=== PATIENT | female | born 1960 ===

== ENCOUNTER 2016-07-02 17:04 | Emergency (ER) | payer MEDICAID ==
[2016-07-02 17:14] VITALS: BP 147/95; PULSE 80; RESP 16; TEMP 98; O2SAT 100
--- NOTE | 2016-07-02 18:03 | ED PDOC ---
Upper Extremity Pain/Injury Time Seen by Provider: 07/02/16 17:43 Chief Complaint (Nursing): Upper Extremity Problem/Injury Chief Complaint (Provider): Upper Extremity Problem/Injury History Per: Patient History/Exam Limitations: no limitations Onset/Duration Of Symptoms: Days Current Symptoms Are (Timing): Still Present Additional Complaint(s): 55 y/o female presents to the emergency department with a complaint of a right shoulder pain after playing with her grandchild since 06/26/2016. Associated with numbness and "twitching" of the muscle. Patient states she had been applying heat pads with minimal relief of pain as long as she stays still; when she moves pain returns. Denies chest pain. Past Medical History Reviewed: Historical Data, Nursing Documentation, Vital Signs Vital Signs: Last Vital Signs Temp 98.0 F 07/02/16 17:12 Pulse 80 07/02/16 17:12 Resp 16 07/02/16 17:12 BP 147/95 H 07/02/16 17:12 Pulse Ox 100 07/02/16 17:12 - Medical History PMH: Bipolar Disorder, GERD, HTN, Hypercholesterolemia - Family History Family History: States: Unknown Family Hx - Social History Current smoker - smoking cessation education provided: No Alcohol: None Drugs: Denies - Home Medications Home Medications: Ambulatory Orders Medication Instructions Recorded Cyclobenzaprine [Cyclobenzaprine 10 mg PO BID #14 tab 07/02/16 HCl] Lisinopril/Hydrochlorothiazide 1 tab PO DAILY 07/02/16 [Lisinopril-Hctz 20-25 mg Tab] Simvastatin [Zocor] 1 tab PO DAILY 07/02/16 - Allergies Allergies/Adverse Reactions: Allergies Allergy/AdvReac Type Severity Reaction Status Date / Time No Known Allergies Allergy Verified 07/02/16 17:12 Review of Systems ROS Statement: Except As Marked, All Systems Reviewed And Found Negative Cardiovascular: Negative for: Chest Pain Musculoskeletal: Positive for: Shoulder Pain (Right), Other ("Twitching" of the muscle) Neurological: Positive for: Numbness Physical Exam - Reviewed Nursing Documentation Reviewed: Yes Vital Signs Reviewed: Yes - Physical Exam Appears: Positive for: Non-toxic, No Acute Distress Head Exam: Positive for: ATRAUMATIC, NORMOCEPHALIC Skin: Positive for: Normal Color, Warm, Dry Back: Negative for: Other (No midline tenderness) Extremity: Positive for: Normal ROM (Full), Other ( Normal pronation and supination. Neurovascularly intact ). Negative for: Tenderness (No AC joint tenderness. No Clavicle tenderness.) Neurologic/Psych: Positive for: Alert, Oriented - ECG O2 Sat by Pulse Oximetry: 100 (RA) Pulse Ox Interpretation: Normal Medical Decision Making Medical Decision Making: Time: 17:43 Initial impression: Shoulder injury Time: 18:12 Upon provider reevaluation patient is feeling better, is medically stable, and requires no further treatment in the ED at this time. Patient will be discharged home with Rx for Cyclobenzaprine HCl 10 mg. Counseling was provided and all questions were answered regarding diagnosis and need for follow up with referred clinics. There is agreement to discharge plan. Return if symptoms persist or worsen. Clinical Impression: Shoulder injury Scribe Attestation: Documented by Carmen Beltran, acting as a scribe for Destini Gay PA-C. Provider Scribe Attestation: All medical record entries made by the Scribe were at my direction and personally dictated by me. I have reviewed the chart and agree that the record accurately reflects my personal performance of the history, physical exam, medical decision making, and the department course for this patient. I have also personally directed, reviewed, and agree with the discharge instructions and disposition. Disposition - Clinical Impression Clinical Impression: Shoulder injury Counseled Patient/Family Regarding: Studies Performed, Rx Given - Disposition [facility]errals: [facility]] [facility] [Outside] [facility] [Outside] Disposition: Routine/Home Disposition Time: 18:10 Condition: STABLE Prescriptions: Cyclobenzaprine [Cyclobenzaprine HCl] 10 mg PO BID #14 tab Instructions: Shoulder Sprain (ED)
== END 2016-07-02 18:16 | disposition home or self-care (01) ==
LOC: H.ER 17:04
DX: M25.511 Pain in right shoulder (principal); E78.00 Pure hypercholesterolemia, unspecified; F31.9 Bipolar disorder, unspecified; I10 Essential (primary) hypertension; K21.9 Gastro-esophageal reflux disease without esophagitis